=== PATIENT | male | born 1965 | race Caucasian/White ===

== ENCOUNTER 2016-10-16 07:34 | Inpatient (IN) | payer MEDICAID ==
[~2016-10-16] VITALS: Ht 182.9 cm; Wt 83.8 kg
[~2016-10-16 07:34] MED LIST: ASPI-231 PO; ATOR40TA52 PO; CARV6.2551 PO; CLIN1CAP4 PO; COLC0.6T56 PO; FEBU80TA PO; PRED-188 PO
[2016-10-16] MEDS ORDERED: MORPHINE SULFATE 4 MG/ML SYRG IV ONE ×2 (08:00→10:00)
[2016-10-16] MEDS ORDERED: ASPirin 81 mg TAB PO ONE (08:00)
[2016-10-16] MEDS ORDERED: ONDANSETRON HCL 4 MG/2 ML VIAL IV ONE (08:00)
[2016-10-16 08:36] LABS: Basophils # (auto) 0 uL; Basophils % (auto) 0.4 % (0.0-2.0); Eosinophils # (auto) 0.2 uL; Eosinophils % (auto) 1.4 % (0.0-7.0); Hematocrit 51.6 % (41.0-53.0); Hemoglobin 16.7 g/dL (13.5-17.5); Lymphocytes # (auto) 2.1 uL; Lymphocytes % (auto) 19.2 % (10.0-50.0); Mean Corpuscular Hemoglobin 29.7 pg (28.0-32.0); Mean Corpuscular Hgb Conc. 32.3 g/dL (32.0-36.0); Mean Corpuscular Volume 91.8 fL (80.0-100.0); Mean Platelet Volume 8.8 fL (7.4-10.4); Monocytes # (auto) 1.3 uL; Monocytes % (auto) 11.8 % (0.0-12.0); Neutrophils # (auto) 7.4 uL; Neutrophils % (auto) 67.2 % (37.0-80.0); Platelet Count (auto) 284 10^3/uL (140-450); Red Cell Distribution Width 14.4 % (11.6-16.0)
[2016-10-16 08:50] LABS: Partial Thromboplastin Time 27.8 sec (22.64-33.71)
[2016-10-16 08:55] LABS: Albumin 3.3 g/dL (3.4-5.0); Anion Gap 11 (5-15); Aspartate Aminotransferase 41 U/L (15-37); BUN/Creatinine Ratio 16.7; Blood Urea Nitrogen 23 mg/dL (7-18); Carbon Dioxide 22 mmol/L (21-32); Chloride 103 mmol/L (98-107); GFR African American 70 mL/min; GFR Non-African American 58 mL/min; Glucose 67 mg/dL (74-106); Magnesium 1.9 mg/dL (1.6-2.6); Potassium 4.7 mmol/L (3.5-5.1); Sodium 136 mmol/L (136-145)
[2016-10-16 09:00] LABS: Alkaline Phosphatase 106 U/L (45-117)
[2016-10-16 09:27] LABS: B-Type Natriuretic Peptide 458.76 pg/mL (0-100)
[2016-10-16 09:28] LABS: INR 1.38 (0.9-1.15); Prothrombin Time 14.9 sec (9.37-12.3); Temperature: 24.1 C (20.0-25.0)
[2016-10-16] MEDS ORDERED: DOCUSATE SOD 100 MG CAP PO PRN (11:30)
[2016-10-16] MEDS ORDERED: NITROGLYCERIN 0.4 MG SL TAB SL PRN (11:30)
[2016-10-16] MEDS ORDERED: CARVEDILOL 3.125 MG TAB PO ONE (11:30)
[2016-10-16] MEDS ORDERED: FUROSEMIDE 40 MG/4 ML VIAL IV ONE (11:30)
[2016-10-16] MEDS ORDERED: ACETAMINOPHEN 325 MG TAB PO PRN (11:30)
[2016-10-16] MEDS ORDERED: SPIRONOLACTONE 25 MG TAB PO ONE (11:30)
[2016-10-16] MEDS ORDERED: TEMAZEPAM 15 MG CAP PO PRN (11:30)
[2016-10-16] MEDS ORDERED: HYDROcodone-ACET 5/325MG TAB PO PRN (11:30)
[2016-10-16] MEDS ORDERED: COLCHICINE 0.6 MG CAP PO ONE (11:30)
[2016-10-16] MEDS ORDERED: ONDANSETRON HCL 4 MG/2 ML VIAL IV PRN (11:30)
[2016-10-16] MEDS ORDERED: MORPHINE SULF INJ 2 MG/ML SYRINGE 1ML IV PRN ×2 (11:30)
[2016-10-16] MEDS: BOOST PLUS 8 ounce PO SCH ×2 (12:00→18:00)
[2016-10-16] MEDS: ENOXAPARIN SOD 40 MG/0.4 ML SYRINGE SC SCH (12:07)
[2016-10-16] MEDS: MULTIPLE VITAMIN TAB PO SCH (12:07)
[2016-10-16] MEDS: FAMOTIDINE 20 MG TAB PO SCH ×2 (12:07→22:04)
[2016-10-16] MEDS: SODIUM CHLOR 0.9% PF (SALINE LOCK) 10ML VIAL IV SCH ×2 (14:02→22:03)
[2016-10-16 16:12] VITALS: BP 116/83
[2016-10-16] MEDS ORDERED: FURO40TA4 PO (16:27)
[2016-10-16] MEDS ORDERED: SPIR25TA88 PO (16:27)
[2016-10-16] MEDS: SPIRONOLACTONE 25 MG TAB PO SCH (17:49)
[2016-10-16] MEDS: FUROSEMIDE 40 MG/4 ML VIAL IV SCH (17:49)
[2016-10-16 20:00] VITALS: BP 112/70
[2016-10-16 20:42] VITALS: BP 112/70
[2016-10-16] MEDS: ATORVASTATIN 20 MG TAB PO SCH (22:03)
[2016-10-16] MEDS: COLCHICINE 0.6 MG CAP PO SCH (22:03)
[2016-10-16] MEDS: CARVEDILOL 3.125 MG TAB PO SCH (22:08)
[2016-10-16 22:55] LABS: Urine RBC None Seen /hpf (0 - 3)
[2016-10-16 23:00] VITALS: BP 122/85
[2016-10-17] VITALS (9 sets, daily range): BP systolic 99–118; BP diastolic 51–79
[2016-10-17] LABS: Urine Color Yellow (Yellow)
[2016-10-17 00:01] LABS: Urine Bilirubin Negative (Negative); Urine Blood Negative /uL (Negative); Urine Glucose Normal (Normal); Urine Ketone Negative (Negative); Urine Nitrite Negative (Negative); Urine Squamous Epithelial Cell FEW /hpf (<5); Urine Urobilinogen Normal (Negative)
[2016-10-17 00:02] LABS: Urine Hyaline Cast MANY /lpf (0 - 2)
[2016-10-17 05:33] LABS: Basophils # (auto) 0.1 uL; Basophils % (auto) 0.5 % (0.0-2.0); Eosinophils # (auto) 0.1 uL; Eosinophils % (auto) 0.9 % (0.0-7.0); Hemoglobin 16.4 g/dL (13.5-17.5); Lymphocytes # (auto) 2.2 uL; Lymphocytes % (auto) 17.1 % (10.0-50.0); Mean Corpuscular Hemoglobin 29.7 pg (28.0-32.0); Mean Corpuscular Hgb Conc. 32.2 g/dL (32.0-36.0); Mean Corpuscular Volume 92.2 fL (80.0-100.0); Mean Platelet Volume 8.9 fL (7.4-10.4); Monocytes # (auto) 1.4 uL; Monocytes % (auto) 10.8 % (0.0-12.0); Neutrophils # (auto) 9.1 uL; Neutrophils % (auto) 70.7 % (37.0-80.0); Platelet Count (auto) 288 10^3/uL (140-450); Red Cell Distribution Width 14.6 % (11.6-16.0); White Blood Cell 12.9 10^3/uL (4.4-10.8)
[2016-10-17 05:54] LABS: Albumin 3.1 g/dL (3.4-5.0); BUN/Creatinine Ratio 15.2; Calcium 8.8 mg/dL (8.5-10.1)
[2016-10-17 05:59] LABS: Bilirubin, Total 3.6 mg/dL (0.2-1.0); Total Protein 6.6 g/dL (6.4-8.2)
[2016-10-17] MEDS: FUROSEMIDE 40 MG/4 ML VIAL IV SCH ×2 (06:15→17:59)
[2016-10-17] MEDS: SPIRONOLACTONE 25 MG TAB PO SCH ×2 (06:15→17:59)
[2016-10-17] MEDS: SODIUM CHLOR 0.9% PF (SALINE LOCK) 10ML VIAL IV SCH ×3 (06:15→22:00)
[2016-10-17 06:19] LABS: Potassium 6.1 mmol/L (3.5-5.1)
[2016-10-17] MEDS ORDERED: DEXTROSE (50%) 50ML SYRG IV ONE (07:15)
[2016-10-17] MEDS ORDERED: InsuLIN REG 1unit/0.01ml Soln (100units/ml) IV ONE (07:15)
[2016-10-17] MEDS ORDERED: CALCIUM GLUC 4.65 MEQ/10ML 4.65 MEQ in SODIUM CHL 0.9% 50 ML IV ONE (07:15)
[2016-10-17] MEDS ORDERED: SODIUM POLYSTYRENE SULF 15GM/60ML SUSP PO ONE ×2 (07:15→08:15)
[2016-10-17] MEDS: BOOST PLUS 8 ounce PO SCH ×3 (08:43→18:00)
[2016-10-17] MEDS: COLCHICINE 0.6 MG CAP PO SCH ×2 (09:46→21:47)
[2016-10-17] MEDS: FAMOTIDINE 20 MG TAB PO SCH ×2 (09:48→21:47)
[2016-10-17] MEDS: ASPirin-EC 81 mg tab PO SCH (09:48)
[2016-10-17] MEDS: ENOXAPARIN SOD 40 MG/0.4 ML SYRINGE SC SCH (09:48)
[2016-10-17] MEDS: MULTIPLE VITAMIN TAB PO SCH (09:48)
[2016-10-17] MEDS: CARVEDILOL 3.125 MG TAB PO SCH ×2 (10:00→21:46)
[2016-10-17 20:45] LABS: Calcium 8.7 mg/dL (8.5-10.1); Potassium 3.9 mmol/L (3.5-5.1)
[2016-10-17 20:52] LABS: BUN/Creatinine Ratio 17.2
[2016-10-17] MEDS: ATORVASTATIN 20 MG TAB PO SCH (21:46)
[2016-10-18 03:51] VITALS: BP 115/79
[2016-10-18] MEDS: SODIUM CHLOR 0.9% PF (SALINE LOCK) 10ML VIAL IV SCH ×3 (05:25→21:33)
[2016-10-18] MEDS: FUROSEMIDE 40 MG/4 ML VIAL IV SCH (05:25)
[2016-10-18 07:50] VITALS: BP 101/59
[2016-10-18] MEDS: BOOST PLUS 8 ounce PO SCH ×3 (08:00→18:17)
[2016-10-18] MEDS: ASPirin-EC 81 mg tab PO SCH (10:58)
[2016-10-18] MEDS: MULTIPLE VITAMIN TAB PO SCH (10:59)
[2016-10-18] MEDS: ENOXAPARIN SOD 40 MG/0.4 ML SYRINGE SC SCH (10:59)
[2016-10-18] MEDS: FAMOTIDINE 20 MG TAB PO SCH ×2 (10:59→21:34)
[2016-10-18] MEDS: COLCHICINE 0.6 MG CAP PO SCH ×2 (10:59→21:33)
[2016-10-18] MEDS: CARVEDILOL 3.125 MG TAB PO SCH ×2 (11:00→21:34)
[2016-10-18 12:00] VITALS: BP 110/66
[2016-10-18 15:55] VITALS: BP 103/73
[2016-10-18] MEDS: FUROSEMIDE 40 MG TAB PO SCH (18:17)
[2016-10-18 20:00] VITALS: BP 106/76
[2016-10-18] MEDS: ceFAZolin 1GM/50ML D5W 50 ML IV SCH ×2 (21:32→21:33)
[2016-10-18] MEDS: ATORVASTATIN 20 MG TAB PO SCH (21:34)
[2016-10-18] MEDS: POTASSIUM CHL 10 Meq TABLET PO SCH (21:34)
[2016-10-18 23:58] VITALS: BP 99/70
[2016-10-19 03:52] VITALS: BP 112/75
[2016-10-19] MEDS: FUROSEMIDE 40 MG TAB PO SCH ×2 (05:10→18:15)
[2016-10-19] MEDS: SODIUM CHLOR 0.9% PF (SALINE LOCK) 10ML VIAL IV SCH ×3 (05:10→21:38)
[2016-10-19] MEDS: ceFAZolin 1GM/50ML D5W 50 ML IV SCH (05:10)
[2016-10-19 06:55] LABS: Potassium 3.8 mmol/L (3.5-5.1)
[2016-10-19 07:53] VITALS: BP 98/73
[2016-10-19] MEDS: BOOST PLUS 8 ounce PO SCH ×3 (08:00→18:16)
[2016-10-19] MEDS: CARVEDILOL 3.125 MG TAB PO SCH ×2 (09:48→21:40)
[2016-10-19] MEDS: COLCHICINE 0.6 MG CAP PO SCH ×2 (09:57→21:38)
[2016-10-19] MEDS: ENOXAPARIN SOD 40 MG/0.4 ML SYRINGE SC SCH (09:57)
[2016-10-19] MEDS: POTASSIUM CHL 10 Meq TABLET PO SCH ×2 (09:57→21:38)
[2016-10-19] MEDS: MULTIPLE VITAMIN TAB PO SCH (09:58)
[2016-10-19] MEDS: FAMOTIDINE 20 MG TAB PO SCH ×2 (09:58→21:39)
[2016-10-19] MEDS: ASPirin-EC 81 mg tab PO SCH (09:58)
[2016-10-19 12:00] VITALS: BP 122/69
[2016-10-19 16:48] VITALS: BP 120/81
[2016-10-19] MEDS: ATORVASTATIN 20 MG TAB PO SCH (21:39)
[2016-10-19 22:00] VITALS: BP 103/76
[2016-10-20] VITALS (7 sets, daily range): BP systolic 92–120; BP diastolic 56–81
[2016-10-20] MEDS: SODIUM CHLOR 0.9% PF (SALINE LOCK) 10ML VIAL IV SCH ×3 (05:44→22:08)
[2016-10-20] MEDS: FUROSEMIDE 40 MG TAB PO SCH ×2 (05:45→17:46)
[2016-10-20] MEDS: BOOST PLUS 8 ounce PO SCH ×3 (08:00→17:47)
[2016-10-20] MEDS: FAMOTIDINE 20 MG TAB PO SCH ×2 (10:15→22:03)
[2016-10-20] MEDS: ASPirin-EC 81 mg tab PO SCH (10:15)
[2016-10-20] MEDS: COLCHICINE 0.6 MG CAP PO SCH ×2 (10:15→22:02)
[2016-10-20] MEDS: ENOXAPARIN SOD 40 MG/0.4 ML SYRINGE SC SCH (10:17)
[2016-10-20] MEDS: POTASSIUM CHL 10 Meq TABLET PO SCH ×2 (10:17→22:03)
[2016-10-20] MEDS: CARVEDILOL 3.125 MG TAB PO SCH ×2 (10:17→22:00)
[2016-10-20] MEDS: MULTIPLE VITAMIN TAB PO SCH (10:19)
[2016-10-20] MEDS: ATORVASTATIN 20 MG TAB PO SCH (22:03)
[2016-10-21 05:01] VITALS: BP 102/67
[2016-10-21] MEDS: SODIUM CHLOR 0.9% PF (SALINE LOCK) 10ML VIAL IV SCH ×2 (05:56→14:00)
[2016-10-21] MEDS: FUROSEMIDE 40 MG TAB PO SCH (05:56)
[2016-10-21] MEDS: BOOST PLUS 8 ounce PO SCH ×3 (08:00→18:05)
[2016-10-21 08:57] VITALS: BP 80/57
[2016-10-21] MEDS: COLCHICINE 0.6 MG CAP PO SCH (10:35)
[2016-10-21] MEDS: FAMOTIDINE 20 MG TAB PO SCH (10:36)
[2016-10-21] MEDS: ASPirin-EC 81 mg tab PO SCH (10:36)
[2016-10-21] MEDS: CARVEDILOL 3.125 MG TAB PO SCH (10:37)
[2016-10-21] MEDS: ENOXAPARIN SOD 40 MG/0.4 ML SYRINGE SC SCH (10:38)
[2016-10-21] MEDS: POTASSIUM CHL 10 Meq TABLET PO SCH (10:39)
[2016-10-21] MEDS: MULTIPLE VITAMIN TAB PO SCH (10:39)
[2016-10-21 13:00] VITALS: BP 113/79
[2016-10-21 16:05] VITALS: BP 113/79
[2016-10-21 17:00] VITALS: BP 116/86
== END 2016-10-21 18:45 | disposition home or self-care (01) | DRG 194 ==
LOC: EDBD 07:34 → ER 07:38 → TELE 07:39 → DOU IN ICU 15:42 → TELE-WESTW 10-19 14:30
PROVIDERS: ADMIT Internal Medicine; ATTEND Internal Medicine Pulmonary Disease
PROC: 5A09357 Assistance with Respiratory Ventilation, Less than 24 Consecutive Hours, Continuous Positive Airway Pressure (ICD-10-PCS; principal; 2016-10-16)
DX: I13.0 Hypertensive heart and chronic kidney disease with heart failure and stage 1 through stage 4 chronic kidney disease, or unspecified chronic kidney disease (principal); I27.2 Other secondary pulmonary hypertension; N17.9 Acute kidney failure, unspecified; N18.3 Chronic kidney disease, stage 3 (moderate); E44.1 Mild protein-calorie malnutrition; I42.9 Cardiomyopathy, unspecified; I50.43 Acute on chronic combined systolic (congestive) and diastolic (congestive) heart failure; M10.9 Gout, unspecified; G47.30 Sleep apnea, unspecified; I25.10 Atherosclerotic heart disease of native coronary artery without angina pectoris; L03.114 Cellulitis of left upper limb; J98.11 Atelectasis; R00.0 Tachycardia, unspecified; Z79.82 Long term (current) use of aspirin; I25.2 Old myocardial infarction; Z68.25 Body mass index [BMI] 25.0-25.9, adult
CPT/HCPCS: 36415; 36600; 71010; 78582; 80048; 80053; 80320; 81001; 82805; 82962; 83735; 83880; 84132; 84484; 85025; 85379; 85610; 85730; 87040; 87081; 87086; 93005; 93306; 93971; 94660; 96374; 96375; 96376; G0434; J0690; J2405

== ENCOUNTER 2017-09-07 15:01 | Inpatient (IN) | payer MEDICAID ==
[~2017-09-07] VITALS: Ht 182.9 cm; Wt 79.0 kg
[~2017-09-07 15:01] MED LIST changes: -CARV6.2551 PO; -CLIN1CAP4 PO; -COLC0.6T56 PO; -FEBU80TA PO; +FURO40TA4 PO; -PRED-188 PO; +SPIR25TA88 PO
[2017-09-07 16:12] LABS: Basophils # (auto) 0.1 uL; Basophils % (auto) 0.6 % (0.0-2.0); Eosinophils # (auto) 0.1 uL; Eosinophils % (auto) 0.4 % (0.0-7.0); Hematocrit 47.7 % (41.0-53.0); Hemoglobin 16.1 g/dL (13.5-17.5); Lymphocytes # (auto) 1.1 uL; Lymphocytes % (auto) 7.3 % (10.0-50.0); Mean Corpuscular Hemoglobin 31.5 pg (28.0-32.0); Mean Corpuscular Hgb Conc. 33.8 g/dL (32.0-36.0); Mean Corpuscular Volume 93.1 fL (80.0-100.0); Monocytes # (auto) 1.5 uL; Monocytes % (auto) 10.4 % (0.0-12.0); Neutrophils # (auto) 11.7 uL; Neutrophils % (auto) 81.3 % (37.0-80.0); Nucleated Red Blood Cells % 0.1 %; Platelet Count (auto) 277 10^3/uL (140-450); Red Blood Cells 5.13 10^6/uL (4.5-5.90); Red Cell Distribution Width 15.6 % (11.8-14.3); White Blood Cell 14.4 10^3/uL (4.4-10.8)
[2017-09-07 16:32] LABS: INR 1.33 (0.9-1.15); Partial Thromboplastin Time 29.9 sec (22.64-33.71); Prothrombin Time 14.5 sec (9.37-12.3)
[2017-09-07 16:33] LABS: Albumin 3.6 g/dL (3.4-5.0); BUN/Creatinine Ratio 33.9; Calcium 9.3 mg/dL (8.5-10.1); Potassium 4.3 mmol/L (3.5-5.1); Uric Acid 11.4 mg/dL (3.5-7.2)
[2017-09-07] MEDS ORDERED: KETOROLAC TROMETH 60MG/2ML VIAL IM ONE (16:45)
[2017-09-07] MEDS ORDERED: INDOMETHACIN 25 MG CAP PO ONE (16:45)
[2017-09-07] MEDS ORDERED: SODIUM CHLORIDE 0.9% 1,000 ML IV ONE ×2 (16:48)
[2017-09-07] MEDS ORDERED: PIPERACILLIN-TAZOB 3.375GM 50 ML IV ONE (17:00)
[2017-09-07] MEDS ORDERED: ONDANSETRON HCL 4 MG/2 ML VIAL IV ONE (17:00)
[2017-09-07] MEDS ORDERED: MORPHINE SULFATE 4 MG/ML SYR/VIAL IV ONE (17:00)
[2017-09-07 17:17] LABS: Lactic Acid w/Reflex 2.1 mmol/L (0.4-2.0)
[2017-09-07] MEDS ORDERED: FUROSEMIDE 40 MG TAB PO ONE (19:00)
[2017-09-07] MEDS ORDERED: VANCOMYCIN PER PHARMACY 0 MG IV SCH (19:00)
[2017-09-07] MEDS ORDERED: PANTOPRAZOLE 40 MG/10 ML VIAL IV ONE (19:00)
[2017-09-07] MEDS ORDERED: FAMOTIDINE (10MG/ML) 2ML VL IV ONE (19:00)
[2017-09-07] MEDS ORDERED: DEXTROSE (50%) 50ML SYRG IV PRN (19:15)
[2017-09-07] MEDS ORDERED: TEMAZEPAM 15 MG CAP PO PRN (19:15)
[2017-09-07] MEDS ORDERED: DOCUSATE SOD 100 MG CAP PO PRN (19:15)
[2017-09-07] MEDS ORDERED: HYDROcodone-ACET 5/325MG TAB PO PRN (19:15)
[2017-09-07] MEDS ORDERED: ONDANSETRON HCL 4 MG/2 ML VIAL IV PRN (19:15)
[2017-09-07] MEDS ORDERED: ACETAMINOPHEN 325 MG TAB PO PRN (19:15)
[2017-09-07] MEDS ORDERED: MORPHINE SULFATE 4 MG/ML SYR/VIAL IV PRN (19:15)
[2017-09-07] MEDS ORDERED: VANCOMYCIN 1,250 MG in D5W 5% 250 ML IV SCH (20:00)
[2017-09-07 21:00] VITALS: BP 97/71
[2017-09-07] MEDS: SODIUM CHLOR 0.9% PF (SALINE LOCK) 10ML VIAL IV SCH (21:18)
[2017-09-07] MEDS: CARVEDILOL 3.125 MG TAB PO SCH (21:18)
[2017-09-07] MEDS: ATORVASTATIN 20 MG TAB PO SCH (21:19)
[2017-09-07] MEDS: INDOMETHACIN 25 MG CAP PO SCH (21:19)
[2017-09-07] MEDS: ASCORBIC ACID 500 MG TAB PO SCH (21:19)
[2017-09-07] MEDS: ACCU-CHEK COMFORT CURVE STRIP VI SCH (21:54)
[2017-09-07] MEDS: InsuLIN REG 1unit/0.01ml Soln (100units/ml) SC SCH (21:54)
[2017-09-07 22:00] VITALS: BP 97/71
[2017-09-07 22:25] LABS: Urine Bacteria NONE SEEN /hpf (None Seen); Urine Blood Negative /uL (Negative); Urine WBC <1 /hpf (0 - 3)
[2017-09-07 22:30] VITALS: BP 98/68
[2017-09-08] MEDS: PIPERACILLIN-TAZOB 3.375GM 50 ML IV SCH ×4 (00:02→17:55)
[2017-09-08] MEDS ORDERED: CARV6.2551 PO (00:50)
[2017-09-08] MEDS ORDERED: POTA10TA51 PO (00:51)
[2017-09-08 05:00] VITALS: BP 98/67
[2017-09-08 05:41] LABS: Basophils # (auto) 0 uL; Basophils % (auto) 0.3 % (0.0-2.0); Eosinophils # (auto) 0.1 uL; Eosinophils % (auto) 1.1 % (0.0-7.0); Hematocrit 43.3 % (41.0-53.0); Hemoglobin 14.9 g/dL (13.5-17.5); Lymphocytes # (auto) 1.2 uL; Lymphocytes % (auto) 11.5 % (10.0-50.0); Mean Corpuscular Hemoglobin 32.2 pg (28.0-32.0); Mean Corpuscular Hgb Conc. 34.4 g/dL (32.0-36.0); Mean Corpuscular Volume 93.6 fL (80.0-100.0); Monocytes # (auto) 1.2 uL; Monocytes % (auto) 11.6 % (0.0-12.0); Neutrophils # (auto) 7.7 uL; Neutrophils % (auto) 75.5 % (37.0-80.0); Nucleated Red Blood Cells % 0.1 %; Platelet Count (auto) 219 10^3/uL (140-450); Red Blood Cells 4.63 10^6/uL (4.5-5.90); Red Cell Distribution Width 15.8 % (11.8-14.3); White Blood Cell 10.1 10^3/uL (4.4-10.8)
[2017-09-08 05:54] LABS: BUN/Creatinine Ratio 33.7; Calcium 8.1 mg/dL (8.5-10.1); Potassium 4.3 mmol/L (3.5-5.1)
[2017-09-08 05:56] LABS: Bilirubin, Total 2.1 mg/dL (0.2-1.0); Total Protein 6.7 g/dL (6.4-8.2)
[2017-09-08] MEDS ORDERED: FUROSEMIDE 40 MG TAB PO SCH (06:00)
[2017-09-08] MEDS: SODIUM CHLOR 0.9% PF (SALINE LOCK) 10ML VIAL IV SCH ×3 (06:53→22:20)
[2017-09-08] MEDS: INDOMETHACIN 25 MG CAP PO SCH (06:53)
[2017-09-08] MEDS: InsuLIN REG 1unit/0.01ml Soln (100units/ml) SC SCH ×2 (06:53→11:30)
[2017-09-08] MEDS: ACCU-CHEK COMFORT CURVE STRIP VI SCH ×2 (06:54→11:30)
[2017-09-08 08:00] VITALS: BP 97/71
[2017-09-08 09:06] VITALS: BP 106/76
[2017-09-08] MEDS ORDERED: FAMOTIDINE (10MG/ML) 2ML VL IV SCH (10:00)
[2017-09-08] MEDS ORDERED: SPIRONOLACTONE 25 MG TAB PO SCH (10:00)
[2017-09-08] MEDS ORDERED: PANTOPRAZOLE 40 MG/10 ML VIAL IV SCH (10:00)
[2017-09-08] MEDS: ZINC SULFATE 220 MG CAP PO SCH (10:28)
[2017-09-08] MEDS: CARVEDILOL 3.125 MG TAB PO SCH ×2 (10:29→22:00)
[2017-09-08] MEDS: MULTIPLE VITAMIN TAB PO SCH (10:30)
[2017-09-08] MEDS: ASPirin-EC 81 mg tab PO SCH (10:30)
[2017-09-08] MEDS: ASCORBIC ACID 500 MG TAB PO SCH ×2 (10:30→22:19)
[2017-09-08 12:48] VITALS: BP 96/58
[2017-09-08] MEDS: methylPREDNISolone SOD SUCC 40 MG/ML VL IV SCH ×2 (14:12→22:19)
[2017-09-08] MEDS: FUROSEMIDE 40 MG TAB PO SCH (14:13)
[2017-09-08] MEDS ORDERED: VANCOMYCIN 1,250 MG in D5W 5% 250 ML IV SCH (15:30)
[2017-09-08 16:45] VITALS: BP 95/54
[2017-09-08 18:35] LABS: Calcium 8.5 mg/dL (8.5-10.1); Potassium 5.3 mmol/L (3.5-5.1)
[2017-09-08 22:03] VITALS: BP 80/61
[2017-09-08] MEDS: ATORVASTATIN 20 MG TAB PO SCH (22:19)
[2017-09-08] MEDS: FAMOTIDINE 20 MG TAB PO SCH (22:19)
[2017-09-09] MEDS: PIPERACILLIN-TAZOB 3.375GM 50 ML IV SCH ×3 (00:41→12:00)
[2017-09-09 04:14] LABS: Urine WBC None Seen /hpf (0 - 3)
[2017-09-09 04:39] LABS: Urine Bacteria NONE SEEN /hpf (None Seen); Urine Blood Negative /uL (Negative); Urine Specific Gravity 1.021 (1.001-1.035)
[2017-09-09 05:02] LABS: Protein, Urine 26.5 mg/dL (0.0-11.9)
[2017-09-09 05:20] VITALS: BP 97/63
[2017-09-09 05:40] LABS: BUN/Creatinine Ratio 30.1; Calcium 8.9 mg/dL (8.5-10.1); Phosphorus 4.2 mg/dL (2.5-4.90); Potassium 4.8 mmol/L (3.5-5.1); Uric Acid 7.9 mg/dL (3.5-7.2)
[2017-09-09] MEDS: SODIUM CHLOR 0.9% PF (SALINE LOCK) 10ML VIAL IV SCH ×2 (05:55→14:00)
[2017-09-09] MEDS: methylPREDNISolone SOD SUCC 40 MG/ML VL IV SCH ×2 (05:55→14:00)
[2017-09-09 08:00] VITALS: BP 86/51
[2017-09-09 09:07] VITALS: BP 84/57
[2017-09-09] MEDS: FUROSEMIDE 40 MG TAB PO SCH (10:00)
[2017-09-09] MEDS: CARVEDILOL 3.125 MG TAB PO SCH (10:00)
[2017-09-09] MEDS: ZINC SULFATE 220 MG CAP PO SCH (11:08)
[2017-09-09] MEDS: FAMOTIDINE 20 MG TAB PO SCH (11:10)
[2017-09-09] MEDS: MULTIPLE VITAMIN TAB PO SCH (11:10)
[2017-09-09] MEDS: ASPirin-EC 81 mg tab PO SCH (11:10)
[2017-09-09] MEDS: ASCORBIC ACID 500 MG TAB PO SCH (11:10)
[2017-09-09 11:52] VITALS: BP 81/47
[2017-09-09] MEDS ORDERED: ALL100T PO (12:18)
[2017-09-09 14:24] VITALS: BP 102/69
== END 2017-09-09 15:55 | disposition home or self-care (01) | DRG 720 ==
LOC: EDBD 15:01 → EDSEX 15:01 → ER 15:12 → OVERFLOW 15:13 → WEST WING 20:10
PROVIDERS: ADMIT Internal Medicine; ATTEND Hospitalist
DX: A41.9 Sepsis, unspecified organism (principal); I50.43 Acute on chronic combined systolic (congestive) and diastolic (congestive) heart failure; D68.9 Coagulation defect, unspecified; E11.21 Type 2 diabetes mellitus with diabetic nephropathy; E11.22 Type 2 diabetes mellitus with diabetic chronic kidney disease; E11.65 Type 2 diabetes mellitus with hyperglycemia; N18.3 Chronic kidney disease, stage 3 (moderate); I13.0 Hypertensive heart and chronic kidney disease with heart failure and stage 1 through stage 4 chronic kidney disease, or unspecified chronic kidney disease; M10.062 Idiopathic gout, left knee; M10.061 Idiopathic gout, right knee; M10.072 Idiopathic gout, left ankle and foot; M10.071 Idiopathic gout, right ankle and foot; E87.1 Hypo-osmolality and hyponatremia; J44.9 Chronic obstructive pulmonary disease, unspecified; I25.10 Atherosclerotic heart disease of native coronary artery without angina pectoris; I45.6 Pre-excitation syndrome; Z79.899 Other long term (current) drug therapy; Z79.82 Long term (current) use of aspirin; I25.2 Old myocardial infarction
CPT/HCPCS: 36415; 71045; 73562; 73610; 76775; 80048; 80053; 81001; 82570; 82962; 83036; 83516; 83605; 83880; 84100; 84156; 84300; 84443; 84550; 85025; 85610; 85652; 85730; 86225; 86235; 86431; 87040; 87086; 96361; 96365; 96375; C9113; J1815; J2405; J2543; J3490; J7060